=== PATIENT | female | born 1945 | race Caucasian/White ===

== ENCOUNTER 2021-06-18 10:27 | Outpatient (CLI) | payer MEDICARE | END 2021-06-18 10:28 | disposition home or self-care (01) | LOC: BICMAMMO 10:27 | PROVIDERS: ATTEND Internal Medicine | DX: Z12.31 Encounter for screening mammogram for malignant neoplasm of breast (principal); Z91.89 Other specified personal risk factors, not elsewhere classified; Z80.3 Family history of malignant neoplasm of breast | CPT/HCPCS: 77063; 77067 ==

== ENCOUNTER 2022-05-25 12:44 | Outpatient (CLI) | payer MEDICARE | END 2022-05-25 12:45 | disposition home or self-care (01) | LOC: BICCT 12:44 | PROVIDERS: ATTEND Internal Medicine Gastroenterology | DX: R10.12 Left upper quadrant pain (principal); K57.30 Diverticulosis of large intestine without perforation or abscess without bleeding; N28.89 Other specified disorders of kidney and ureter | CPT/HCPCS: 74176; 82565 ==

== ENCOUNTER 2022-06-07 16:40 | Inpatient (IN) | payer MEDICARE ==
[2022-06-07 18:47] VITALS: BMI 31.5
[2022-06-07] MEDS ORDERED: Atorvastatin Calcium 40 MG TAB PO SCH (19:15)
[2022-06-07] MEDS ORDERED: Nitroglycerin 0.4 MG TAB (25 Tab Bottle) SL PRN (20:01)
[2022-06-07] MEDS ORDERED: Ondansetron PF 4 MG/2 ML Vial IVP PRN (20:07)
[2022-06-07] MEDS ORDERED: Sodium Chloride 0.9% 500 ML IV SCH (20:15)
[2022-06-07] MEDS: Cholecalciferol 1,000 UNITS (25 MCG) TAB PO SCH (20:51)
[2022-06-07] MEDS: Metoprolol Tartrate 25 MG TAB PO SCH (20:51)
[2022-06-07] MEDS: Atorvastatin Calcium 20 MG TAB PO SCH (20:51)
[2022-06-07] MEDS: Pramipexole Di-HCl 0.125 MG TAB PO SCH (20:52)
[2022-06-07] MEDS: Acetaminophen 325 MG TAB PO PRN (20:53)
[2022-06-07] MEDS: traZODone HCl 50 MG TAB PO SCH (20:53)
[2022-06-07 21:22] LABS: Anion Gap 12 mmol/L (10-20); BUN (Urea Nitrogen) 38 mg/dL (9.8-20.1); Calc. Creatinine Clearance 27 mL/min (70-130); Calcium 8.7 mg/dL (7.8-10.44); Carbon Dioxide 18 mmol/L (23-31); Chloride 110 mmol/L (98-107); Estimated GFR 24; Glucose 94 mg/dL (83-110); Potassium 4.1 mmol/L (3.5-5.1); Sodium 136 mmol/L (136-145)
[2022-06-07 21:27] LABS: Troponin I 0.018 ng/mL (< 0.028)
[2022-06-07 23:58] LABS: Troponin I 0.018 ng/mL (< 0.028)
[2022-06-08] MEDS: Levothyroxine Sodium 50 MCG TAB PO SCH (05:53)
[2022-06-08 05:57] LABS: Hemoglobin A1c 5.9 % (4.0-6.0)
[2022-06-08 06:15] LABS: Anion Gap 11 mmol/L (10-20); BUN (Urea Nitrogen) 46 mg/dL (9.8-20.1); Calc. Creatinine Clearance 25 mL/min (70-130); Calcium 8.5 mg/dL (7.8-10.44); Carbon Dioxide 20 mmol/L (23-31); Cardiac Risk 2.5 (Less than 4.5); Chloride 114 mmol/L (98-107); Cholesterol 98 mg/dl (< 200 Desired); Estimated GFR 22; Glucose 122 mg/dL (83-110); HDL Cholesterol 39 mg/dL (>60 Neg Risk); LDL Cholesterol, Calculated 41 mg/dL; Magnesium 1.4 mg/dL (1.6-2.6); Potassium 4.2 mmol/L (3.5-5.1); Sodium 141 mmol/L (136-145); Triglycerides 89 mg/dL (Less than 150)
[2022-06-08 07:08] LABS: #Eosinphils 0.3 thou/uL (0.0-0.7); #Lymphocytes 0.4 thou/uL (1.20-3.40); #Monocytes 0.5 thou/uL (0.11-0.59); #Neutrophils 8.3 thou/uL (1.40-6.50); %Lymphocytes 4.3 % (21.0-51.0); %Monocytes 5.7 % (0.0-10.0); Hemoglobin 9.8 g/dL (12.0-16.0); Mean Corpuscular HGB CONC 32.9 g/dL (32.0-36.0); Mean Corpuscular Hemoglobin 32.3 pg (27.0-31.0); Mean Corpuscular Volume 98.1 fl (78.0-98.0); Mean Platelet Volume 7.7 fL (7.4-10.4); Platelet Count 114 10x3/uL (130-400); RBC Distribution Width 12.3 % (11.5-14.5); Red Blood Cell (RBC) Count 3.05 mill/uL (4.20-5.40); White Blood Cell (WBC) Count 9.5 10x3/uL (4.8-10.8)
[2022-06-08 07:09] LABS: MDiff Complete? YES; Ovalocytes SLIGHT = 2-5 cells (100X) (0-1/hpf); Platelet Morphology Comment Appears Decreased; Polychromasia SLIGHT = 2-3 cells (100X) (0-2/hpf)
[2022-06-08] MEDS ORDERED: Magnesium 2 GM/50 ML(in water) 2 GM in Premix Bag 1 BAG IVPB SCH (08:45)
[2022-06-08] MEDS ORDERED: Furosemide 20 MG TAB PO SCH (09:00)
[2022-06-08] MEDS: Escitalopram Oxalate 20 mg Tablet PO SCH (09:32)
[2022-06-08] MEDS: Aspirin 81 mg Enteric Coated Tablet PO SCH (09:32)
[2022-06-08] MEDS: Acetaminophen 325 MG TAB PO PRN ×2 (09:33→16:03)
[2022-06-08] MEDS: Metoprolol Tartrate 25 MG TAB PO SCH (09:47)
[2022-06-08] MEDS ORDERED: Sodium Chloride 0.9% 500 ML IV SCH (15:00)
[2022-06-08] MEDS ORDERED: diphenhydrAMINE 25 MG CAP PO PRN (17:13)
[2022-06-08] MEDS: Pramipexole Di-HCl 0.125 MG TAB PO SCH (20:29)
[2022-06-08] MEDS: Cholecalciferol 1,000 UNITS (25 MCG) TAB PO SCH (20:29)
[2022-06-08] MEDS: Atorvastatin Calcium 20 MG TAB PO SCH (20:29)
[2022-06-08] MEDS: traZODone HCl 50 MG TAB PO SCH (20:29)
[2022-06-09] MEDS: Levothyroxine Sodium 50 MCG TAB PO SCH (05:49)
[2022-06-09] MEDS ORDERED: ADENOSINE 60 MG/20 ML VIAL ONE (08:54)
[2022-06-09] MEDS: Aspirin 81 mg Enteric Coated Tablet PO SCH (12:01)
[2022-06-09] MEDS: Escitalopram Oxalate 20 mg Tablet PO SCH (12:01)
[2022-06-09] MEDS: Acetaminophen 325 MG TAB PO PRN (12:01)
[2022-06-09 15:37] VITALS: BP 90/46; TEMP 97.8
== END 2022-06-09 17:09 | disposition home or self-care (01) | DRG 313 ==
LOC: 2SW 16:40 → OBSVTOIN 06-09 13:43
PROVIDERS: ADMIT Hospitalist; ATTEND Internal Medicine
DX: R07.2 Precordial pain (principal); N17.9 Acute kidney failure, unspecified; N18.4 Chronic kidney disease, stage 4 (severe); I12.9 Hypertensive chronic kidney disease with stage 1 through stage 4 chronic kidney disease, or unspecified chronic kidney disease; E78.5 Hyperlipidemia, unspecified; E03.9 Hypothyroidism, unspecified; K21.9 Gastro-esophageal reflux disease without esophagitis; F32.A Depression, unspecified; G47.00 Insomnia, unspecified; G25.81 Restless legs syndrome; D72.829 Elevated white blood cell count, unspecified; Z88.5 Allergy status to narcotic agent; Z79.890 Hormone replacement therapy; Z79.899 Other long term (current) drug therapy; Z90.710 Acquired absence of both cervix and uterus; Z98.1 Arthrodesis status
CPT/HCPCS: 36415; 36416; 78452; 80048; 80061; 82728; 83036; 83735; 85025; 93017; 93306; 93970; 94760; 96374; 96375; A9500; G0378; J0153; J2405; J3475; J7030; J7050; U0003; U0005

== ENCOUNTER 2022-08-26 12:08 | Outpatient (CLI) | payer MEDICARE | END 2022-08-26 12:09 | disposition home or self-care (01) | LOC: BICMAMMO 12:08 | PROVIDERS: ATTEND Internal Medicine | DX: Z12.31 Encounter for screening mammogram for malignant neoplasm of breast (principal); Z80.3 Family history of malignant neoplasm of breast; Z91.89 Other specified personal risk factors, not elsewhere classified | CPT/HCPCS: 77063; 77067 ==

== ENCOUNTER 2023-10-06 11:40 | Outpatient (CLI) | payer MEDICARE | END 2023-10-06 11:41 | disposition home or self-care (01) | LOC: BICMAMMO 11:40 | PROVIDERS: ATTEND Internal Medicine | DX: Z12.31 Encounter for screening mammogram for malignant neoplasm of breast (principal); Z80.3 Family history of malignant neoplasm of breast; Z91.89 Other specified personal risk factors, not elsewhere classified | CPT/HCPCS: 77063; 77067 ==